=== PATIENT | female | born 1970 | race Caucasian/White ===

== ENCOUNTER → 2018-12-10 | Outpatient (CLI) | payer OTHER ==
--- NOTE | 2018-12-11 17:06 | PATH ---
[facility] [address] [place] [address] PATHOLOGY RPT PROCEDURE Name: LIANET VALDIVIA Room #: REG MARLEY [place]en[place].#: [id number] Admission: 12/10/18 Date of : 72 Discharge: Report #: [id number] Path Case #: [id number] [facility] Accession Number: [id number] . 01 Material submitted: . breast - RIGHT BREAST CALCS, LATERAL SUPERIOR. Modifiers: right, lateral, superior . 01 Clinical history: . Right breast calcifications . 02 Diagnosis: Breast, right breast lateral superior, stereotactic needle core biopsy: - Fibroadenoma associated with coarse calcifications. - Background breast tissue showing proliferative fibrocystic changes including stromal fibrosis, dilated ducts and columnar cell change. - Negative for atypia or malignancy. (IUV:pit; 12/11/2018) QTP 12/11/2018 1318 Local . 02 Electronically signed: . Kenyetta Marshall MD, Pathologist NPI- [id number] . 01 Gross description: . Received in formalin labeled "ValdiviaLianet, right," and additionally labeled on the requisition as "breast lateral superior calcs," are multiple needle cores of yellow-garcia fibrofatty tissue measuring 3.1 x 4.7 x 0.6 cm in aggregate dimensions. Additionally received in the same container is a white plastic cassette containing multiple needle cores of yellow-garcia fibrofatty tissue measuring 1.9 x 1.6 x 1.1 cm in aggregate dimensions. The tissue in the cassette is transferred to cassette A1 and the remaining tissue is submitted in its entirety in cassette A2-A4. The cold ischemic time is unknown. The total formalin fixation time is greater than 6 hours and less than 72 hours. (TSD; 12/10/2018) TOB/TOB 12/10/2018 1726 Local . 02 Pathologist provided ICD-10: D24.1, N60.11, N60.31 . 02 CPT . 917055 Specimen Comment: A courtesy copy of this report has been sent to Specimen Comment: [phone], . Specimen Comment: Report sent to / DR TABOR Performed at: 01 [place] [address] PATHOLOGY RPT PROCEDURE Name: SHEALIANET Room #: REG CLI Gene#: [id number] Admission: 12/10/18 Date of : 72 Discharge: Report #: [id number] Path Case #: [id number] [facility] [place] [address] [place] [address] [address], [place], [place] [id number] MD Gigi Holland MD Phone: [phone] Performed at: [address] [id number] MD Kenyetta Marshall MD Phone: [phone]
== END | disposition home or self-care (01) ==
LOC: RAD 03:39
DX: R92.1 Mammographic calcification found on diagnostic imaging of breast (principal); D24.1 Benign neoplasm of right breast; N60.11 Diffuse cystic mastopathy of right breast